=== PATIENT | female | born 2000 | race Caucasian/White ===

== ENCOUNTER → 2025-10-06 08:12 | Outpatient (REF) | payer OTHER, SELFPAY ==
--- OUTSIDE RECORDS SUMMARY | 2024-09-09 09:52 | XMS_ITS | Encounter Summary ---
Author Organization [facility] Address [address] [place] [address] Care Team Providers Care Bunch Maker Hand Name Role Phone McgheeClaudia epps Mushtaq DILL Primary Care Provider [phone]- [phone] Encounter Details Date Type Department Care Team ([facility] st Contact Info) Description 09/09/2024 9:52 AM EST Hospital Encounter [facility] [address] [place] [id number] Zeke Hidalgo MD [address] [place], [place] [id number] Social History Tobacco Use Types Packs/Day Years Used Date Smoking Tobacco: Former Cigarettes 0 Q uit: 04/2022 Smokeless Tobacco: Never Alcohol Use Standard Drinks/Week Comments Yes 0 (1 standard drink = 0.6 oz pur e alcohol) occasionally PHQ-2 Answer Date Recorded PHQ-2 Total Score 0 01/17/2023 [facility] [place] - Occupational Stress Questionnaire Answer Date Recorded Do you feel stress - tense, restless, nervous, or anxious, or unable to sleep at night because your mind is troubled all the time - these days? Rather much 09/25/2024 Physical Activity Answer Date Recorded On average, how many days pe r week do you engage in moderate to strenuous exercise (like a brisk walk)? 5 days 09/25/2024 On average, how many minutes do you exercise per day at this level? 30 min 09/25/2024 Comments No Sex and Gender Information Value Date Recorded Sex Assigned at Female 01/17/2023 8:54 AM EDT Legal Sex Female 3:21 PM EST Gender Identity Agender 09/06/2023 8:41 AM EST Sexual Orientation Not on file documented as of this encounter Plan of Treatment Not on file documented as of this encounter Procedures Procedure Name Priority Date/Time Associated Diagnosis Comments XR CHEST 2 VIEWS STAT 09/09/2024 10:0 3 AM EST Cough, unspecified type documented in this encounter Results * XR Chest 2 views (09/09/2024 10:03 AM EST) Anatomical Region Laterality Modality Chest Computed Radiogr aphy 09/09/2024 10:0 4 AM EST Impressions 09/09/2024 10:04 AM EST Impression: Clear lungs. Narrative 09/09/2024 10:04 AM EST XR CHEST 2 VIEWS: 09/09/2024 9:52 AM CLINICAL HISTORY: Cough Comparisons: Chest x-ray 11/17/2020 Technique: PA and Lateral views. 2 views. Findings: The cardiac silhouette is normal in size. The mediastinal and hilar structures appear unremarkable. The lungs are well expanded without focal infiltrates identified. The visualized osseous structures appear unremarkable. Procedure Note Cornelius Nelson MD - 09/09/2024 XR CHEST 2 VIEWS: 09/09/2024 9:52 AM CLINICAL HISTORY: Cough Comparisons: Chest x-ray 11/17/2020 Technique: PA and Lateral views. 2 views. Findings: The cardiac silhouette is normal in size. The mediastinal and hilarstructures appear unremarkable. The lungs are well expanded without focalinfiltrates identified. The visualized osseous structures appearunremarkable. IMPRESSION: Impression: Clear lungs. us [facility] L[facility] Final Result documented in this encounter Visit Diagnoses Not on filedocumented in this encounter Care Teams Bunch Maker Hand Relationship Specialty Start Date End Date Claudia Mcghee APRN [address] [place] [address] PCP - General Family Medicine 01/17/23 documented as of this encounter
--- OUTSIDE RECORDS SUMMARY | 2025-10-06 08:16 | XMS_ITS | Encounter Summary ---
Author Organization [facility] Address [address] [place] [address] Care Team Providers Care Talent Acquisition Associate Name Role Phone Claudia Mcghee APRN Primary Care Provider [phone]- [phone] Encounter Details Date Type Department Care Team (Late st Contact Info) Description 09/09/2024 Scanned Document [address] [place] [id number] Provider, Generic Social History Tobacco Use Types Packs/Day Years Used Date Smoking Tobacco: Former Cigarettes 0 Q uit: 04/2022 Smokeless Tobacco: Never Alcohol Use Standard Drinks/Week Comments Yes 0 (1 standard drink = 0.6 oz pur e alcohol) occasionally PHQ-2 Answer Date Recorded PHQ-2 Total Score 0 01/17/2023 Comments No Sex and Gender Information Value Date Recorded Sex Assigned at Female 01/17/2023 8:54 AM EDT Legal Sex Female 3:21 PM EST Gender Identity Agender 09/06/2023 8:41 AM EST Sexual Orientation Not on file documented as of this encounter Plan of Treatment Not on file documented as of this encounter Visit Diagnoses Not on filedocumented in this encounter Care Teams Talent Acquisition Associate Relationship Specialty Start Date End Date Claudia cMghee APRN [address] [place] [address] PCP - General Family Medicine 01/17/23 documented as of this encounter
--- OUTSIDE RECORDS SUMMARY | 2025-10-06 08:16 | XMS_ITS | Clinical Summary ---
Author Organization [facility] Address [address] [place] [address] Care Team Providers Care Forming Acid Dumper Name Role Phone McgheeClaudia epps Mushtaq DILL Primary Care Provider [phone]- [phone] Allergies No known active allergies Medications * This document contains information received from the source organization and may not represent a complete record from that organization. methylphenidate (CONCERTA) 18 MG CR tablet Take by mouth as needed. ? Mg dose Active naproxen (NAPROSYN) 500 MG tablet Take 1 tablet (500 mg total) by mouth 2 (two) times a day as needed for mild pain (pain). Take with food 14 tablet 03/01/2021 Active Cholecalciferol 125 MCG (5000 UT) capsule Take 1 tablet by mouth every morning. 02/22/2022 Active acetaminophen (TYLENOL) 500 MG tabletIndicatio ns:Abnormal uterine bleeding (AUB),Pelvic pain Take 1 tablet (500 mg total) by mouth 4 times daily (every 6 hours) as needed for mild pain. 30 tablet 01/17/2023 Active fluconazole (diFLUcan) 150 MG tabletIndicatio ns:Yeast infection Take 1 tablet (150 mg total) by mouth once. 1 tablet 03/13/2023 Active albuterol (PROVENTIL HFA; VENTOLIN HFA) 108 (90 Base) MCG/ACT inhalerIndicati ons:Acute bacterial bronchitis Inhale 2 puffs 4 times daily (every 6 hours) as needed for wheezing. 1 each 09/09/2024 Active busPIRone (BUSPAR) 5 MG tablet Take 1 tablet (5 mg total) by mouth 2 times a day. Active atomoxetine (STRATTERA) 18 MG capsule Take 1 capsule (18 mg total) by mouth. 11/08/2023 Active cyclobenzaprine (FLEXERIL) 10 MG tablet Take 1 tablet (10 mg total) by mouth. 05/11/2024 Active oxyCODONE (ROXICODONE) 5 MG immediate release tablet Take 1 tablet (5 mg total) by mouth. 09/03/2024 Active PANTOprazole (PROTONIX) 40 MG EC tablet Take 1 tablet (40 mg total) by mouth daily on an empty stomach. 02/24/2024 Active Active Problems Problem Noted Date Diagnosed Date S/P hysterectomy 02/05/2023 Assessment & Plan (02/05/2023 11:33 AM EDT): Meeting postoperative goals No vaginal bleeding Return for 6 week postop visit Abnormal uterine bleeding (AUB) 01/04/2023 Overview (01/04/2023): Added automatically from request for surgery [id number] Cervical dysplasia 11/17/2022 Overview (02/06/2023): LSIL pap 10/2022: needs pap 1 year S/p hysterectomy SASCHA 1, no need for anymore pap smears. Assessment & Plan (02/06/2023 4:00 PM EDT): S/p hysterectomy, CIN1 on final pathology, no need for further paps. Back pain 11/13/2022 Asthma 11/13/2022 Anxiety 11/13/2022 Bilateral lumbar radiculopathy 11/13/2022 Attention deficit hyperactivity disorder (ADHD) 12/19/2019 Chronic posttraumatic stress disorder 06/19/2016 Resolved Problems Problem Noted Date Diagnosed Date Resolved Date Pelvic pain 01/04/2023 02/05/2023 Overview (01/04/2023): Added automatically from request for surgery [id number] Family History Medical History Relation Name Comments No Known Problems Brother No Known Problems Father No Known Problems Mother No Known Problems Sister Relation Name Status Comments Brother Alive Father Alive Mother Alive Sister Alive Social History Tobacco Use Types Packs/Day Years Used Date Smoking Tobacco: Former Cigarettes 0 Q uit: 04/2022 Smokeless Tobacco: Never Tobacco Cessation:Counseling Given: Not Answered Alcohol Use Standard Drinks/Week Comments Yes 0 (1 standard drink = 0.6 oz pur e alcohol) occasionally PHQ-2 Answer Date Recorded PHQ-2 Total Score 0 [facility]20[facility] Answer Date Recorded [...] AM EST Sexual Orientation Not on file Last Filed Vital Signs Vital Sign Reading Time Taken Comments Blood Pressure 111/76 09/09/2024 9:40 AM EST Pulse 95 09/09/2024 9:40 AM EST Temperature 36.8 C (98.3 F) 09/09/2024 9:40 AM EST Respiratory Rate 15 09/09/2024 9:40 AM EST Oxygen Saturation 99% 09/09/2024 9:40 AM EST Inhaled Oxygen Concentration - - Weight 94.6 kg (208 lb 9.6 oz) 09/25/2024 8:47 A M EST Height 160 cm (5' 3 ) 09/25/2024 8:47 AM EST Body Mass Index 36.95 09/25/2024 8:47 AM EST Plan of Treatment Health Maintenance Due Date Last Done Comments Hepatitis C Virus Screening 2000 HIV Screening 2013 HPV Vaccines (1 - 3-dose series) 2015 DTaP/Tdap/Td Vaccines (1 - Tdap) 2019 Hepatitis B Vaccines (1 of 3 - 19+ 3-dose series) 2019 Pneumococcal Vaccine: Pediat terry (0-5 Years) and At-Risk Patients (6 to 49 Years) (1 of 2 - PCV) 2019 Influenza Vaccine 05/14/2025 COVID-19 Vaccine (3 - 2024- season) 2025, 05/07/2021 Pap Smear (Ages 21-65) 11/13/2025 11/13/2022 Procedures Procedure Name Priority Date/Time Associated Diagnosis Comments PAP/PRODUCT MARKETING SPECIALIST CYTOLOGY Routine 11/13/2022 11:34 AM EST Screening due from Last 3 Months or Most Recently Relevant to Health Maintenance Insurance [facility] Advance Directives * Full Code (Latest Code Status on File) Date Activated Date Inactivated Comments 01/17/2023 9:39 AM Care Teams Forming Acid Dumper Relationship Specialty Start Date End Date Claudia Mcghee APRN [address] [place] [address] PCP - General Family Medicine 01/17/23
--- OUTSIDE RECORDS SUMMARY | 2025-10-06 08:16 | XMS_ITS | Clinical Summary ---
Author Organization [facility] Address [address] [place] [address] Care Team Providers Care Associate Veterinarian Name Role Phone Dieter Marino MD Unavailable Aguilar Nguyen APRN Primary Care Provider + Allergies No known active allergies Medications albuterol (2.5 MG/3ML) 0.083% nebulizer solution USE 1 UNIT DOSE EVERY 4-6 HOURS NEEDED FOR WHEEZING . 1 3 10/16/2021 Active Acetaminophen (TYLENOL) 500 MG tablet TAKE 1 TABLET EVERY 4 TO 6 HOURS NEEDED. 0 10/16/2021 Active Ibuprofen (ADVIL,MOTRIN) 600 MG tablet TAKE 1 TABLET BY MOUTH 4 TIMES DAILY (EVERY 6 HOURS) NEEDED FOR MILD PAIN. 30 0 01/17/2023 Active oxyCODONE HCl (ROXICODONE) 5 MG immediate release tablet Take 5 mg by mouth. 09/03/2024 Active Naproxen (NAPROSYN) 500 MG tabletIndicatio ns:Fibromyalgia Take one tablet (500 mg total) by mouth 2 (two) times a day if needed for mild pain or moderate pain Take with food. 60 tablet 09/23/2024 01/02/20 26 Active Active Problems Problem Noted Date Diagnosed Date Atypical mole 08/30/2024 Overview (08/30/2024): 08/24/2024 - Two hyperpigmented papules to mid-back with irregular borders and inconsistent color. Patient agrees to Dermatology referral for further evaluation and management - order placed. Encouraged patient to call Dermatology office if not contacted to schedule appointment within 2 weeks. Class 2 severe obesity with serious comorbidity and body mass index (BMI) of 38.0 to 38.9 in adult 08/30/2024 Overview (08/30/2024): 08/24/2024 - In-office weight today is 218 lbs. Patient agrees to Weight Management referral - order placed. Encouraged patient to call Weight Management office if not contacted to schedule appointment within 2 weeks. Postural dizziness with near syncope 08/30/2024 Overview (09/23/2024): 08/24/2024 - Patient seen by Cardiology with negative workup. Completed Physical Therapy with no improvement to symptoms. Patient agrees to complete brain MRI for further evaluation. Will monitor result. 09/23/2024 - Patient has not yet been contacted to schedule MRI, encouraged follow up with [facility]. Contact this office if any issues arise. Nocturnal dyspnea 05/12/2024 Overview (05/12/2024): 05/10/2024 - Patient agrees to Pulmonology referral for PFT and further evaluation - order placed. Encouraged patient to call Pulmonology office if not contacted to schedule appointment within 2 weeks. Flank pain, acute 02/17/2024 Overview (02/17/2024): 02/17/2024 - In-office urinalysis significant for trace blood in urine, otherwise unremarkable. Sample sent for culture. Patient agrees to complete low-dose CT of abdomen and pelvis without contrast to evaluate for potential kidney stone. Will monitor results. Encouraged patient to continue with increased hydration. Raynaud's disease without gangrene 12/20/2023 Claudication 12/20/2023 Overview (01/20/2024): 12/20/2023 - Chronic condition, initial evaluation. Patient agrees to complete ankle-brachial index to assess for peripheral artery disease. 01/20/2024 - Stable, not at goal. Reviewed BUSTER results with patient - results negative for PAD. Patient awaiting scheduling with Cardiology for further evaluation. Palpitations 12/20/2023 Overview (09/23/2024): 12/20/2023 - Chronic condition for years , stable. In-office EKG shows NSR. Patient agrees to complete TSH lab. Recent lab work from 08/2023 unremarkable. Referral to cardiology for further evaluation. 01/20/2024 - Orthostatic vitals assessed. Heart rate change between lying, sitting and standing positions insignificant, suggesting against POTS diagnosis. Significant increase in BP with transition from lying to sitting position, followed by significant decrease in BP with transition from sitting to standing notable. Patient scheduled for Echocardiogram on 01/27/24. New referrals to Cardiology placed - patient advised to keep earliest appointment available. 09/23/2024 - Stable. Cardiology work-up negative. Benign joint hypermobility 12/20/2023 Overview (02/17/2024): 12/20/2023 - Chronic condition, stable, initial assessment. Patient agrees to referral to genetics for testing for hypermobile Jesse-Danlos syndrome - order placed. 02/17/2024 - Genetics requests patient complete Echocardiogram prior to scheduling. Echo complete, results benign. Referral to genetics re-sent, will include Echo results with referral paperwork. Bilateral hand swelling 12/20/2023 Chronic fatigue 12/20/2023 Abdominal bloating 12/20/2023 Overview (01/20/2024): 12/20/2023 - Patient agrees to complete Celiac panel lab work - orders placed. 01/20/2024 - Reviewed Celiac panel results with patient; results negative. Patient agrees to Gastroenterology referral - order placed. Encouraged patient to call Gastroenterology office if not contacted to schedule appointment within 2 weeks. Fibromyalgia 11/21/2023 Overview (09/23/2024): 11/21/2023 Start Cyclobenzaprine 5 mg before bed for pain relief and reduced sleep disturbances. Advised avoiding alcohol when taking Cyclobenzaprine due to sedating effects of medication. Discussed potential medication side effects, including dizziness, dry mouth, constipation. Follow up in 4 weeks, or sooner, if concerns arise. 12/20/2023 - Stable, not at goal. Increase cyclobenzaprine dose to 10 mg nightly for pain relief. New prescription sent. Discussed option to start tricyclic antidepressant for further symptom management - patient declines at this time. Encouraged continued exercise as tolerated. Follow up in 4 weeks for medication review, or sooner, if concerns arise. 01/20/2024 - Stable, not at goal. Continue on Cyclobenzaprine 10 mg nightly as needed and Naproxen 500 mg twice daily as needed for pain relief - refill orders placed. Patient encouraged to take Naproxen with food to reduce risk for stomach ulceration and GI upset. Patient advised to avoid daily consecutive use of Naproxen for more than 2 weeks. Continue exercise as tolerated. Discussed option for referral to physical therapy for joint and endurance strengthening - patient verbalizes interest, states she'd like to wait until after echocardiogram. Follow up in 4 weeks, or sooner, if concerns arise. 02/17/2024 - Stable, controlled. Continue on Cyclobenzaprine 10 mg nightly as needed and Naproxen 500 mg twice daily as needed for pain relief - refill orders placed. Patient encouraged to take Naproxen with food to reduce risk for stomach ulceration and GI upset. Patient advised to avoid daily consecutive use of Naproxen for more than 2 weeks. Continue exercise as tolerated. 05/10/2024 - Stable, controlled. Continue on Cyclobenzaprine 10 mg nightly as needed and Naproxen 500 mg twice daily as needed for pain relief - refill orders placed. Continue exercise and gentle stretching as tolerated. 09/23/2024 - Improving since breast reduction surgery. Continue on Cyclobenzaprine 10 mg nightly as needed and Naproxen 500 mg twice daily as needed for pain relief. Gastroesophageal reflux disease 11/21/2023 Overview (02/17/2024): 11/21/2023 Chronic condition, stable, well controlled. Continue on pantoprazole 20 mg once daily. Refill order placed. 02/17/2024 - Encouraged patient to start taking Pantoprazole 40 mg once daily on first thing before any food intake. Patient to follow up with office if painful hiccups are unrelieved with daily Pantoprazole use. H/O: hysterectomy 05/20/2023 Frequent loose stools 05/20/2023 Bright red blood per rectum 05/20/2023 Overview (05/12/2024): 11/21/2023 Patient last seen by GI in June, - was advised that blood was related to constipation (hemorrhoid vs anal fissure?). Advised patient follow up with GI, request a scope exam given family history of colon cancer. Encouraged patient to request cancer specific labs through GI. 05/10/2024 - Endoscopy and colonoscopy results benign. Patient to follow up with GI as needed. Intertrigo 10/16/2022 Vitamin D deficiency 02/22/2022 Thrombocytosis 02/22/2022 Painful lumpy left breast 02/21/2022 Bilateral lumbar radiculopathy 11/15/2021 Vertebrogenic low back pain 11/15/2021 PTSD (post-traumatic stress disorder) 10/16/2021 H/O self mutilation 10/16/2021 Overview (11/17/2023): Impression - [id number]: Right lower arm scarring Hip pain, chronic 10/16/2021 History of tonsillectomy 10/16/2021 Overview (11/17/2023): Impression - [id number]: 2020 Anxiety 10/16/2021 Overview (11/17/2023): Impression - [id number]: Patient requesting a therapist. Manages with relaxation techniques. Depression 10/16/2021 ADHD (attention deficit hyperactivity disorder) 10/16/2021 Asthma 10/16/2021 Overview (11/17/2023): Impression - [id number]: Stable and no recent exacerbations. Use inhalers PRN. Impression - [id number]: Stable and no recent exacerbations. Back pain, chronic 10/16/2021 Overview (05/12/2024): 11/21/2023 - Patient has completed several months of physical therapy, and has tried acupuncture and chiropractor, with no relief of chronic back pain. Office to provide letter of medical necessity for patient's breast reduction surgery. 05/10/2024 - Breast surgery delayed due to need for Cardiology clearance. Patient awaiting tilt table test through Cardiology. Resolved Problems Problem Noted Date Diagnosed Date Resolved Date Acute bronchitis 11/21/2022 05/12/2024 Overview (11/17/2023): Impression - [id number]: Patient will take Claritin 10 milligram daily as needed for allergy/postnasal drip. Ordered a chest x-ray because patient is concerned about history of pneumonia. Clinically patient is stable. No sign or symptoms of pneumonia. No fever, no productive cough. Cough 11/21/2022 11/21/2023 Sore throat 10/09/2022 11/21/2023 URI with cough and congestion 10/09/2022 11/21/2023 Discharge from left nipple 02/21/2022 0 05/12/2024 History of termination of 10/16/2021 04/01/2024 Overview (11/17/2023): Impression - 16Oct2021: 10/12/21--9 weeks gestation.; Follow-up with [employer] [employer] [facility] 10/18/2021 Immunizations Immunization Administration Dates Next Due COVID-19, mRNA (Moderna Pre Fall 2022) Monovalent, 100 mcg/0.5 ml or 50 mcg/0.25 ml dose 06/03/2021,05/07/2021 DTaP-HEP B-IPV (Pediarix) 11/10/2004 HPV4 (Gardasil 4) 04/05/2015,07/25/2012,05/14/20 12 Hep A, Pediatric, Unspecified Formulation 2004,04/18/2004 Hep B (pedi) 03/25/2002,04/07/2001 Hib - 03/25/2002,08/12/2001,04/07/2001 MMR 11/10/2004,03/22/2003 Meningococcal ACWY (Menactra) 05/14/2012 Meningococcal ACWY (Menveo) 06/18/2017 OPV, Trivalent (Admin Before 01/13/2016) 3,03/25/2002,04/07/2001 Tdap 05/14/2012 Varicella 05/14/2012,03/22/2003 Family History Medical History Relation Name Comments CAD/PVD - Early Maternal grandfather Diabetes Paternal grandmother Relation Name Status Comments Maternal grandfather Paternal grandmother Social History Tobacco Use Types Packs/Day Years Used Date Smoking Tobacco: Former Cigarettes 0.2 4 0 04/13/2018 - 04/13/2022 Passive Smoke Exposure: Never Smokeless Tobacco: Never Tobacco Cessation:Counseling Given: Not Answered Comments:Smoking Status:No current tobacco use Alcohol Use Standard Drinks/Week Comments Yes 0 (1 standard drink = 0.6 oz pur e alcohol) socially, monthly use Comments No Sex and Gender Information Value Date Recorded Sex Assigned at Female 07/17/2023 10:28 PM EDT Legal Sex Female 10:28 PM EDT Gender Identity Genderqueer or Non-binary 2023 2:09 PM EST Sexual Orientation Bisexual 05/11/2024 9: 50 AM EDT Last Filed Vital Signs Vital Sign Reading Time Taken Comments Blood Pressure 118/72 09/23/2024 1:14 PM EST Pulse 100 09/23/2024 1:14 PM EST Temperature 36.5 C (97.7 F) 09/23/2024 1:14 PM EST Respiratory Rate 16 09/23/2024 1:14 PM EST Oxygen Saturation 99% 09/23/2024 1:14 PM EST Inhaled Oxygen Concentration - - Weight 94.3 kg (208 lb) 09/23/2024 1:14 PM EST Height 160 cm (5' 3 ) 09/23/2024 1:14 PM EST Body Mass Index 36.85 09/23/2024 1:14 PM EST Plan of Treatment Health Maintenance Due Date Last Done Comments Pap Smear 2016 Pneumococcal (1 of 2 - PCV) 2019 DTaP/Tdap/Td (3 - Td or Tdap) 05/14/2022 05/14/2012, 11/10/2004 COVID-19 Vaccine (3 - 2024-2 6 season) 2025 06/03/2021, 05/07/2021 Influenza (#1) 2025 Chlamydia 06/22/2025 06/22/2024, 07/15, 08/27/2018 Colonoscopy 04/06/2029 04/06/2024, 04/06/2024 Zoster (Shingrix) (1 of 2) 2050 05/14/2012, Hib Completed 03/25/2002, 07/16, 04/07/2001 Hep A Completed 11/10/2004, 04/18/2004 Hep B Completed 11/10/2004, 03/14, 04/07/2001 HPV Vaccine Completed 04/05/2015, 07/14, 05/14/2012 Meningococcal ACWY Completed 06/18/2017, 05/14/2012 Physical Discontinued 10/16/2021 Hepatitis C Screening Completed 02/21/2022 LDL Cholesterol Discontinued 09/05/2023, 08/0 04/2023, 02/21/2022 EKG Discontinued 08/28/2024, 07/0 10/2023, 12/20/2023, Additional history exists Procedures Procedure Name Priority Date/Time Associated Diagnosis Comments INFECTIOUS AGENT, NUCLEIC ACID (DNA/RNA); CHLAMYDIA TRACHOMATIS, AMPLIFIED PROBE Routine 06/22/2024 1:47 PM EDT Vaginal itching White vaginal discharge COLONOSCOPY 04/06/2024 EKG 12/20/2023 LIPID PANEL, PLASMA Routine 05/20/2023 9 :41 AM EDT HEPATITIS C ANTIBODY W/ REFLEX TO RNA, QN, RT PCR Routine 02/21/2022 12:04 PM EDT from Last 3 Months or Most Recently Relevant to Health Maintenance Results * (ABNORMAL) BACTERIAL VAGINOSIS (BV), CT/NG, TMA (06/22/2024 1:47 PM EDT) Bacterial Vaginosis (BV), TMA POSITIVE(A) NEGATIVE [facility] Chlamydia trachomatis rRNA NOT DETECTED NOT DETECTED [facility] Neisseria Gonorrhoeae rRNA NOT DETECTED NOT DETECTED [facility] 06/22/2024 1:47 PM EDT 06/22/2024 1:47 PM EDT Narrative [facility] - 06/23/2024 8:12 AM EDT Track Order?->No Release result to patient->Immediate Testing Performed at: [facility], [address] [place] [address], , Patient Registration Manager: Tammy Esposito MD CL#[id number] Aguilar Fisherkimberly [facility] Final Re sult Performing Organization Address [facility]/ZIP Co de Phone Number [facility] [address] [place] [address], * COLONOSCOPY (04/06/2024) Aguilar Fisherkimberly [facility] Final Re sult * EKG (12/20/2023) Narrative 12/20/2023 Ordered by an unspecified provider. Unknown Provider CARDIOVASCULAR-NO INBASKET RTG Final Result * (ABNORMAL) LIPID PANEL, PLASMA (05/20/2023 9:41 AM EDT) Cholesterol 168 0 - 199 mg/dL [facility] Triglyceride 88 0 - 150 mg/dL [facility] VLDL Cholesterol 18 5 - 40 mg/dL [facility] HDL Cholesterol 43(L) 50 - 80 mg/dL [facility] LDL Cholesterol 108(H) 0 - 100 mg/dL [facility] Cholesterol Non-HDL 125 0 - 130 mg/dl [facility] CHOL/HDL Ratio 3.9 [facility] 05/20/2023 9:41 AM EDT Narrative [facility] - 05/20/2023 6:06 PM EDT FASTING: NO Fasting reference interval. [facility] Lip[facility] testing results require a 12 hour fasting specimen. Use caution when interpreting non-fasting cholesterol and triglyceride results. Testing Performed at: [facility], [address] [place] [id number], , Patient Registration Manager: Tammy Esposito MD CL#[id number] Claudia Mcghee [facility] Final R esult Performing Organization Address [facility]/ZIP Co de Phone Number [facility] * HEPATITIS C ANTIBODY W/ REFLEX TO RNA, QN, RT PCR (02/21/2022 12:04 PM EDT) Hepatitis C virus Ab NON-REACT GEENA NON-REACT GEENA [facility] Hepatitis C virus Ab 0.05 <1.00 [facility] Comment:Antibodies to HCV we re not detected. NOTE: This does not entirely exclude the possibility of exposure to HCV since antibody production may lag infection. If there is a high suspicion of HCV infection HCV RNA testing may be of diagnostic value. 02/21/2022 12:0 4 PM EDT Narrative [facility] - 02/21/2022 4:05 PM EDT Testing Performed at: [facility], [address] [place] [address], , Patient Registration Manager: Tammy Esposito MD CL#[id number] 6:02PM by Claudia Mcghee: Spoke with patient. CBC to be repeated in 1 month Claudia Mcghee [employer] [facility] Final R esult [facility] from Last 3 Months or Most Recently Relevant to Health Maintenance Insurance MEDICAID Care Teams Associate Veterinarian Relationship Specialty Start Date End Date Dieter Marino MD [address] [id number] PCP - Backup PCP Family Medicine 11/14/23 Aguilar Nguyen APRN [address] [place] [phone] PCP - General Family Medicine 12/20/23
--- OUTSIDE RECORDS SUMMARY | 2025-10-06 08:16 | XMS_ITS | Encounter Summary ---
Author Organization [facility] Address [address] [place] [address] Care Team Providers Care Lpn Medical Assistant Name Role Phone Claudia Mcghee APRN Primary Care Provider [phone]- [phone] Encounter Details Date Type Department Care Team (Late st Contact Info) Description 09/09/2024 [address] [place] [phone] Provider, Generic Social History Tobacco Use Types [...] on filedocumented in this encounter Care Teams Lpn Medical Assistant Relationship Specialty Start Date End Date Claudia Mcghee APRN [address] [facility] [place] [address] PCP - General Family Medicine 01/17/23 documented as of this encounter
--- OUTSIDE RECORDS SUMMARY | 2025-10-06 08:16 | XMS_ITS | Encounter Summary ---
Author Organization [facility] Address [address] [place] [address] Care Team Providers Care Field Administrative Assistant Name Role Phone Dieter Marino MD Unavailable Aguilar Nguyen APRN Primary Care Provider + Reason for Visit * Reason Comments Med Change Request Encounter Details Date Type Department Care Team (Late st Contact Info) Description 12/20/2023 Refill [facility] [address] [place] [address] Aguilar Nguyen APRN [address] [place] [address] Med Change Request Social History Tobacco Use Types Packs/Day Years Used Date Smoking Tobacco: Never Passive Smoke Exposure: Never Smokeless Tobacco: Never Comments:Smoking Status:No c urrent tobacco use Alcohol Use Standard Drinks/Week Comments Never 0 (1 standard drink = 0.6 oz pur e alcohol) Comments Unknown Sex and Gender Information Value Date Recorded Sex Assigned at Female 07/17/2023 10:28 PM EDT Legal Sex Female 10:28 PM EDT Gender Identity Genderqueer or Non-binary 2023 2:09 PM EST Sexual Orientation Bisexual 05/11/2024 9: 50 AM EDT documented as of this encounter Plan of Treatment Not on file documented as of this encounter Visit Diagnoses Diagnosis Fibromyalgia Mylagia and myositis, unspecified documented in this encounter Care Teams Field Administrative Assistant Relationship Specialty Start Date End Date Dieter Marino MD [address] [place] [address] PCP - Backup PCP Family Medicine 11/14/23 Aguilar Nguyen APRN [address] [place] [phone] PCP - General Family Medicine 12/20/23 documented as of this encounter
--- OUTSIDE RECORDS SUMMARY | 2025-10-06 08:16 | XMS_ITS ---
Author Name [facility] Organization Unknown Results Test Name/Text Value Interpretation Date Range Source Citation Ref Lab Test The technical components of this [place] [address] CLIA # [id number] Normal 09/04/2024 [facility] BACTERIAL VAGINOSIS (BV), TMA POSITIVE Abnormal 06/22/2024 - [facility] CHLAMYDIA TRACHOMATIS RNA TMA NOT DETECTED Normal 06/22/2024 - [facility] NEISSERIA GONORRHOEAE RNA TMA NOT DETECTED Normal 06/22/2024 - [facility] Bacteria Ur Cult SEE NOTE Normal 02/19/2024 QU EST tTG IgG Ser-aCnc <1.0 Normal 12/24/2023 QU EST Gliadin IgA Ser IA-aCnc <1.0 Normal 12/24/2023 [facility] IgA SerPl-mCnc 244.0 mg/dL Normal 12/24/2023 47 - 310 QU EST tTG IgA Ser-aCnc <1.0 Normal 12/24/2023 QU EST Gliadin IgG Ser IA-aCnc <1.0 Normal 12/24/2023 [facility] History of Medication Use Medication Directions Dispensed Refills Start Date End Date Status azithromycin (ZITHROMAX) 250 MG tablet Take 2 tabs PO on day one and one tabs on days 2-5 #6 4 09/15/20 24 active albuterol (PROVENTIL HFA; VENTOLIN HFA) 108 (90 Base) MCG/ACT inhaler Inhale 2 puffs 4 times daily (every 6 hours) as needed for wheezing. 4 active oxyCODONE (ROXICODONE) 5 mg immediate release tablet Take 1 tablet (5 mg total) by mouth every 6 (six) hours if needed for severe pain. Max Daily Amount: 20 mg 4 09/29/20 active acetaminophen (TYLENOL) tablet 650 mg 650 mg, oral, Once, On Sat09/01/24 at 1015, For 1 dose, Recovery (only), Scheduled medication for mild pain 4 09/01/20 completed ondansetron (PF) (ZOFRAN) 4 mg/2 mL injection - ADS Override Pull Starting on Sat09/01/24 at 1400, For 1 dose, Created by cabinet override 09/01/20 completed lactated Ringer's infusion 50 mL/hr, intravenous, Continuous, Starting on Sat09/01/24 at 0700, Preprocedure 4 active sodium chloride 0.9 % flush 10 mL [Order 1 Start] Name: Insert peripheral IV Signed Summary: STAT, Once, On Sat09/01/24 at 0637, For 1 occurrence, Preprocedure [Order 1 End] [Order 2 Start] Name: Maintain IV access Signed Summary: Until discontinued, Starting on Sat09/01/24 at 0637, Until Specified, Preprocedure [Order 2 End] [Ord 4 active hyoscyamine (LEVBID) 0.375 MG 12 hr tablet Take 1 tablet (375 mcg total) by mouth every 12 (twelve) hours as needed for cramping. 4 05/23/20 25 active hyoscyamine (LEVBID) 0.375 mg 12 hr tablet Take 1 tablet (375 mcg total) by mouth every 12 (twelve) hours as needed for cramping. 4 08/28/20 24 aborted cyclobenzaprine (FLEXERIL) 10 mg tablet Take 10 mg by mouth in the morning. 4 active cyclobenzaprine (FLEXERIL) 10 MG tablet Take 1 tablet (10 mg total) by mouth. 4 active sodium chloride 0.9% (NS) infusion 25 mL/hr, Intravenous, Continuous, Starting on Sat04/06/24 at 0945, Pre-ProcedureSTART AT KVO (25 ML/HR) PRE-PROCEDURE; DURING PROCEDURE INCREASE RATE TO 300 ML/HR UNTIL 500 ML INFUSED. 4 active pantoprazole (PROTONIX) 40 mg EC tablet TAKE 1 TABLET BY MOUTH EVERY MORNING ON AN EMPTY STOMACH. 4 active PANTOprazole (PROTONIX) 40 MG EC tablet Take 1 tablet (40 mg total) by mouth daily on an empty stomach. 4 active pantoprazole (PROTONIX) 40 MG tablet TAKE 1 TABLET BY MOUTH EVERY MORNING ON AN EMPTY STOMACH. 4 active pantoprazole (PROTONIX) 40 MG tablet TAKE 1 TABLET BY MOUTH EVERY MORNING ON AN EMPTY STOMACH. 4 active cyclobenzaprine (FLEXERIL) 5 mg tablet Take 2 tablets (10 mg total) by mouth every night at bedtime. 4 active cyclobenzaprine (FLEXERIL) 5 MG tablet Take 1 tablet (5 mg total) by mouth. 4 active cyclobenzaprine (FLEXERIL) 5 MG tablet Take 2 tablets (10 mg total) by mouth every night at bedtime. 4 active cyclobenzaprine (FLEXERIL) 5 MG tablet Take 2 tablets (10 mg total) by mouth every night at bedtime. 4 active cyclobenzaprine (FLEXERIL) 5 MG tablet Take 1 tablet (5 mg total) by mouth. 4 active atomoxetine (STRATTERA) 18 mg capsule Take 1 capsule (18 mg total) by mouth daily. 4 08/28/20 24 aborted atomoxetine (STRATTERA) 18 MG capsule Take 1 capsule (18 mg total) by mouth daily. 4 active atomoxetine (STRATTERA) 18 MG capsule Take 1 capsule (18 mg total) by mouth daily. 4 active atomoxetine (STRATTERA) 18 MG capsule Take 1 capsule (18 mg total) by mouth. 4 active tamsulosin (FLOMAX) capsule Take 1 capsule (0.4 mg total) by mouth in the morning. 3 active pantoprazole (Protonix) 40 mg EC tablet Take 1 tablet (40 mg total) by mouth in the morning. 3 06/24/20 24 active busPIRone (BUSPAR) 5 mg tablet Take 5 mg by mouth in the morning. 3 active sucralfate (CARAFATE) 1 GM/10ML suspension Take 10 mL (1 g total) by mouth. 3 09/25/20 active fluconazole (diFLUcan) 150 MG tablet Take 1 tablet (150 mg total) by mouth once. active sucralfate (CARAFATE) 100 mg/mL suspension Take 1 g by mouth. active polyethylene glycol (miraLAx) 17 g packet Take 1 packet (17 g total) by mouth daily. 3 09/25/20 24 active simethicone (MYLICON) 80 MG chewable tablet Chew 1 tablet (80 mg total) 4 times daily (every 6 hours) as needed for flatulence or gastrointestinal distress. 3 09/25/20 24 active ibuprofen (MOTRIN) 600 MG tablet Take 1 tablet (600 mg total) by mouth 4 times daily (every 6 hours) as needed for mild pain. 3 02/18/20 23 aborted oxyCODONE (ROXICODONE) 5 MG immediate release tablet Take 1 tablet (5 mg total) by mouth. 3 02/07/20 23 active simethicone (MYLICON) 80 mg chewable tablet Take 80 mg by mouth every 6 hours as needed. 3 active metroNIDAZOLE (FLAGYL) 500 MG tablet Take 1 tablet (500 mg total) by mouth 2 (two) times a day. Take with meals or food to reduce stomach upset. 3 02/07/20 23 active ibuprofen (MOTRIN) tablet 800 mg 3 01/03/20 23 completed Claritin 10 MG Oral Capsule Claritin 10 MG Oral Capsule1 tab po daily prn for allergy Quantity: 30 Refills: 0Islam M.Jerome [facility] Start : [id number] 3 completed Nystatin [id number] UNIT/GM External Powder Nystatin [id number] UNIT/GM External Powder Quantity: 60 Refills: 0 Start : [id number] 3 completed famotidine (PEPCID) 20 MG tablet Take 1 tablet (20 mg total) by mouth as needed. 3 09/25/20 24 active Famotidine 20 MG Oral Tablet Famotidine 20 MG Oral TabletTAKE 1 TABLET (20 MG TOTAL) BY MOUTH IN THE MORNING AND BEFORE BEDTIME Quantity: 30 Refills: 0 Start : 3 completed Nystatin Powder Nystatin Powderapply to affected area 2x daily. Quantity: 1 Refills: 3BClaudia mendoza APRN Start : [id number] 3 completed Azithromycin 250 MG Oral Tablet Azithromycin 250 MG Oral TabletTAKE 2 TABLETS ON DAY 1 THEN TAKE 1 TABLET A DAY FOR 4 DAYS. Quantity: 1 Refills: 0Bennettkatrina HORENRChris Claudia Start : [id number] Tablet Box 2 completed methocarbamol (ROBAXIN) 500 MG tablet Take 1 tablet (500 mg total) by mouth as needed. 2 09/25/20 24 active Cholecalciferol 125 MCG (5000 UT) capsule Take 1 tablet by mouth every morning. 2 active CVS D3 50 MCG (2000 UT) Oral Capsule CVS D3 50 MCG (2000 UT) Oral CapsuleTAKE 1 CAPSULE BY MOUTH THREE TIMES WEEKLY Quantity: 30 Refills: 0Taz HORNERNClaudia Start : 2 completed Methocarbamol 500 MG Oral Tablet Methocarbamol 500 MG Oral Tablet Refills: 0 Start : 2 completed Naproxen 250 MG Oral Tablet Naproxen 250 MG Oral TabletTAKE 1 TABLET BY MOUTH 2 TIMES A DAY WITH MEALS Refills: 0 Start : 2 completed Vitamin D3 125 MCG (5000 UT) Oral Capsule Vitamin D3 125 MCG (5000 UT) Oral CapsuleTAKE 1 CAPSULE BY MOUTH EVERY DAY Quantity: 1 Refills: Socorro HORNERNClaudia Start : [id number] Capsule Bottle 2 completed acetaminophen (TYLENOL) 500 MG tablet Take 1 tablet (500 mg total) by mouth 4 times daily (every 6 hours) as needed for mild pain. 2 02/18/20 23 active Albuterol Sulfate (2.5 MG/3ML) 0.083% Inhalation Nebulization Solution Albuterol Sulfate (2.5 MG/3ML) 0.083% Inhalation Nebulization SolutionUSE 1 UNIT DOSE EVERY 4-6 HOURS NEEDED FOR WHEEZING . Quantity: 1 Refills: Claudia Kingston APRN Start : 2 completed Concerta 18 MG Oral Tablet Extended Release Concerta 18 MG Oral Tablet Extended ReleaseTake 2 daily PRN. Refills: 0Claudia Mcghee APRN Start : 2 completed Ibuprofen 800 MG Oral Tablet Ibuprofen 800 MG Oral TabletPRN Refills: Claudia Quintanilla APRN Start : 2 completed Tylenol Extra Strength 500 MG Oral Tablet Tylenol Extra Strength 500 MG Oral TabletTAKE 1 TABLET EVERY 4 TO 6 HOURS NEEDED. Refills: Claudia Quintanilla APRN Start : 2 completed naproxen (NAPROSYN) 500 MG tablet Take 1 tablet (500 mg total) by mouth 2 (two) times a day as needed for mild pain (pain). Take with food 04/02/20 23 active albuterol (PROVENTIL HFA; VENTOLIN HFA) 108 (90 Base) MCG/ACT inhaler Inhale 1-2 puffs every 4 (four) hours as needed for wheezing. 1 06/11/20 23 active ALBUTEROL INHL Inhale into the lungs. 08/28/20 24 active Acetaminophen (TYLENOL PO) Take by mouth. active acetaminophen 160 mg tablet,disintegratin g Take by mouth. active ALBUTEROL IN Inhale into the lungs. active busPIRone (BUSPAR) 5 MG tablet Take 1 tablet (5 mg total) by mouth 2 times a day. active busPIRone HCl (BUSPAR PO) Take 5 mg by mouth 2 (two) times a day. active busPIRone HCl (BUSPAR PO) Take 5 mg by mouth 2 (two) times a day. active methylphenidate (CONCERTA) 18 MG CR tablet Take by mouth as needed. ? Mg dose active naproxen (NAPROSYN) 250 mg tablet Take 1 tablet (250 mg total) by mouth 2 (two) times a day as needed. active naproxen (NAPROSYN) 250 MG tablet Take 1 tablet (250 mg total) by mouth 2 (two) times a day as needed. active naproxen (NAPROSYN) 250 MG tablet Take 1 tablet (250 mg total) by mouth 2 (two) times a day with meals. active Allergies Allergen Reaction Severity Comment Documented Date Source Statu s GABAPENTIN OTHER Increase in pain 08/31/2024 [facility] active Problems Problem Status Onset Date Problem Type Date of Resolution Source Chronic posttraumatic stress disorder active 2016-06-19 ProblemAct [facility] Bilateral lumbar radiculopathy active 2022-11-13 ProblemAct [facility] Anxiety active 2022-11-13 ProblemAct [facility] Abnormal uterine bleeding (AUB) active 2023-01-04 ProblemAct [facility] Back pain active 2022-11-13 ProblemAct [facility] Attention deficit hyperactivity disorder (ADHD) active 2019-12-19 ProblemAct [facility] S/P hysterectomy active 2023-02-05 ProblemAct [facility] Cervical dysplasia active 2022-11-17 ProblemAct [facility] Asthma active 2022-11-13 ProblemAct [facility] Class 2 obesity due to excess calories without serious comorbidity with body mass index (BMI) of 35.0 to 35.9 in adult active EncounterDiagnosisAct CTTHNEMG H/O self mutilation active 2021-10-16 ProblemAct [facility] History of tonsillectomy active 2021-10-16 ProblemAct [facility] GERD (gastroesophageal reflux disease) active 2023-12-05 ProblemAct [facility] JOHNS (dyspnea on exertion) active EncounterDiagnosisAct CTTHNE MG Heart rate fast active EncounterDiagnosisAct CT[facility]NEM[facility] Other fatigue active EncounterDiagnosisAct [facility]NEM[facility] Abdominal pain active 2023-12-05 ProblemAct CTT HNEMG Abdominal bloating active 2023-12-05 ProblemAct [facility] Dizziness active EncounterDiagnosisAct [facility] Palpitations active EncounterDiagnosisAct [facility] Pedal edema active EncounterDiagnosisAct [facility] Eating disorder, unspecified active 2019-12-19 ProblemAct [facility] Anxiety active 2021-10-16 ProblemAct [facility] Epigastric pain active 2023-12-[address] [facility] Irregular bowel habits active 2023-12-05 ProblemAct [facility] Macromastia active 2024-02-14 ProblemAct [facility] EL[facility] Vitamin D deficiency active 2022-02-22 ProblemAct [facility] Palpitations active 2023-12-20 ProblemAct [facility] Depression active 2021-10-16 ProblemAct [facility] Frequent loose stools active 2023-05-20 ProblemAct [facility] S/P bilateral breast reduction active EncounterDiagnosisAct [facility] EL[facility] Gastroesophageal reflux disease active 2023-11-21 ProblemAct [facility] Vertebrogenic low back pain active 2021-10-16 ProblemAct [facility] Discharge from left nipple active 2022-02-21 ProblemAct [facility] Bilateral lumbar radiculopathy active 2021-11-15 ProblemAct [facility] Bright red blood per rectum active 2023-05-20 ProblemAct [facility] Claudication active 2023-12-20 ProblemAct [facility] Fracture of phalanx of finger active 2012-07-28 ProblemAct [facility] Eczema active 2017-06-18 ProblemAct [facility] Raynaud's disease without gangrene active 2023-12-20 ProblemAct [facility] Change in bowel habits active 2023-12-05 ProblemAct [facility] Bilateral hand swelling active 2023-12-20 ProblemAct [facility] Intertrigo active 2022-10-16 ProblemAct [facility] Thrombocytosis active 2022-02-22 ProblemAct [facility] Benign joint hypermobility active 2023-12-20 ProblemAct [facility] Major depressive disorder, recurrent episode active 2015-01-05 ProblemAct [facility] Asthma active 2021-10-16 ProblemAct [facility] Recurrent severe major depressive disorder with anxiety active 2016-11-15 ProblemAct [facility] Painful lumpy left breast active 2022-02-21 ProblemAct [facility] Tendinitis active 2011-10-02 ProblemAct [facility] Pleuritic chest pain active 2017-08-20 ProblemAct [facility] Chronic fatigue active 2023-12-[address] [facility] Hypermobility arthralgia active EncounterDiagnosisAct [facility]S Immunizations Vaccine Date Source Lot Number Status Moderna SARS-CoV-2 COVID-19, mRNA, LNP-S, preservative free 06/03/2021 CTBART [id number] completed Moderna SARS-CoV-2 COVID-19, mRNA, LNP-S, preservative free 05/07/2021 [facility] [id number] completed Encounters Encounter Type Encounter Reason Primary Diagnosis Location Date Ambulatory Follow-up Follow-up [facility] 11/05/2024 Ambulatory [facility] 10/21/2024 Ambulatory Other specified postprocedural states Other specified postprocedural states [facility] 10/15/2024 Ambulatory Follow-up Hypertrophy of breast [facility] 09/29/2024 Ambulatory Obesity, class 2 Obesity, class 2 [facility]25[facility]24 Ambulatory [facility] 09/23/2024 Ambulatory [facility] 09[facility]23/2024 Ambulatory [facility] 09/18/2024 Ambulatory [facility] 09/09/2024 Ambulatory Cough Cough [facility] 09/09/2024 Ambulatory Post-op Post-op [facility] 09/08/2024 Ambulatory Hypertrophy of breast Hypertrophy of renetta st [facility] 09/01/2024 Ambulatory [facility] 08/31/2024 Ambulatory Encounter for preprocedural cardiovascular examination Encounter for preprocedural cardiovascular examination [facility] 08/28/2024 Ambulatory [facility] 08/24/2024 Ambulatory N/A N[place]A [facility] [place]05[place]2024 Ambulatory [facility] 06/22/2024 Ambulatory Pain in unspecified joint Pain in unspecified joint [facility] 05/29/2024 Ambulatory Pain in unspecified joint Pain in unspecified joint [facility] 05/20/2024 [facility]ulatory [facility] 05/11/2024 Ambulatory Change in bowel habit Change in bowel hab it [facility] 04[place]06/2024 Ambulatory [facility] 04/01/2024 Ambulatory [facility] 04/01/2024 Ambulatory [facility] 03/30/2024 Ambulatory [facility] 02/28/2024 Ambulatory [facility] 02/26/2024 Ambulatory Calculus of ureter Calculus of ureter [facility] 11/25/2023 Ambulatory Calculus of ureter Calculus of ureter [facility] 11/20/2023 Emergency Unspecified renal colic Unspecified renal colic [facility] 09/06/2023 Emergency Calculus of kidney Calculus of kidney [facility] 09/04/2023 Emergency Unspecified renal colic Unspecified renal colic [facility] 08/17/2023 Ambulatory Epigastric pain Epigastric pain [facility] 07/18/2023 Emergency Dyskinesia of esophagus Dyskinesia of esophagus [facility] 06/24/2023 Emergency Epigastric pain Epigastric pain [facility] Ambulatory Candidiasis, unspecified [facility] 03/13/2023 Ambulatory 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 [facility] 02/06/2023 Emergency Gastritis, unspecified, without bleeding [facility] 01/25/2023 Ambulatory Pelvic and perin eal pain [facility] 01/17/2023 Ambulatory Abnormal uterine and vaginal bleeding, unspecified [facility] 01/02/2023 Ambulatory Pelvic and perin eal pain [facility] 12/12/2022 Ambulatory Pelvic and perineal pain Pelvic and perineal pain [facility] 11/13/2022 Emergency Epigastric pain [facility] 023 Ambulatory [facility] 10/02/2021 Care Team Organization Name Specialty Phone Email Start Date End Da [facility]/2024 [facility] 2023 [facility] Dieter Marino Primary Care 0 07/06/2024 [facility] 06/16/2024 [facility] NOT PROVIDER Primary Care 02[facility]18/2024 [facility] MORGAN GREY Primary Care 1 06/18/2024 [facility] CLAUDIA MCGHEE Primary Care 07/18/2023 07/18/20 [facility] Hazel Samano APRN Primary Care 04/02/2023 06/01/2024 [facility] Primary Care 02/18/2023 06/01/2024 [facility] Claudia Mcghee Primary Care 02/06/2023 025 [facility] Claudia Mcghee Primary Care 023 [facility] CLAUDIA MCGHEE Primary Care 01/17/2023 023 [facility] Savana Gonzalez Primary Care 11/13/20222024 [facility] 023 10/19/2022 [facility] 10/19/2022 [facility] 09/14/2022 [facility] 01/01/2022 08/20/2022 [facility] Taz Taylor Primary Care 10/02/2021 06/18/2024 [facility] SAVANA GONZALEZ Primary Care 03/01/20212020
--- OUTSIDE RECORDS SUMMARY | 2025-10-06 08:16 | XMS_ITS | Clinical Summary ---
Author Organization [facility] Address [address] [place] [id number] Care Team Providers Care Consumer Insights Intern Name Role Phone Jenni Lacey Unavailable Allergies No known active allergies Medications sucralfate (CARAFATE) 100 mg/mL suspension Take 1 g by mouth. 3 Active simethicone (MYLICON) 80 mg chewable tablet Take 80 mg by mouth every 6 hours as needed. 3 Active busPIRone (BUSPAR) 5 mg tablet Take 5 mg by mouth in the morning. 3 Active tamsulosin (FLOMAX) capsule Take 1 capsule (0.4 mg total) by mouth in the morning. 3 capsule 3 Active Additional Information Patient not taking.Reported on 11/20/2023 acetaminophen 160 mg tablet,disinteg rating Take by mouth. Activ e cyclobenzaprine (FLEXERIL) 10 mg tablet Take 10 mg by mouth in the morning. 4 Active Active Problems No known active problems Family History Medical History Relation Comments Rheum arthritis Maternal Grandmother Arthritis Mother Other Mother Throws back out easily / frequently Relation Status Comments Father Alive Half-Brother 1 Alive Half-Brother 2 Alive Half-Brother 3 Alive Half-Sister 1 Alive Half-Sister 2 Alive Maternal Grandmother Mother Alive Social History Tobacco Use Types Packs/Day Years Used Date Smoking Tobacco: Former Cigarettes Smokeless Tobacco: Never Tobacco Cessation:Counseling Given: Not Answered Alcohol Use Standard Drinks/Week Comments Yes 0 (1 standard drink = 0.6 oz pur e alcohol) rarely Comments No Sex and Gender Information Value Date Recorded Sex Assigned at Not on file Legal Sex Female 9:13 AM EST Gender Identity Not on file Sexual Orientation Not on file Last Filed Vital Signs Vital Sign Reading Time Taken Comments Blood Pressure 118/80 11/20/2023 3:34 PM EST Pulse 83 11/20/2023 3:34 PM EST Temperature 36.8 C (98.2 F) 09/06/2023 5:16 AM EST Respiratory Rate 18 09/06/2023 5:59 AM EST Oxygen Saturation 100% 11/20/2023 3:34 PM EST Inhaled Oxygen Concentration - - Weight 95.7 kg (211 lb) 05/20/2024 10:02 AM EDT Height 164.5 cm (5' 4.75 ) 05/20/2024 10:02 AM E DT Body Mass Index 35.38 05/20/2024 10:02 AM EDT Plan of Treatment Health Maintenance Due Date Last Done Comments HIV Screening 2000 Chlamydia Screening 2016 Hepatitis C Screening 2018 Pneumococcal Vaccine: At-Risk and Pediatric Patients (0 to 49 Years) (1 of 2 - PCV) 2019 03/22/2003, 04/07/2001 DTaP,Tdap,and Td Vaccines (7 - Td or Tdap) 05/14/2022 05/14/2012, 11/10/2004, 03/22/2003, Additional history exists COVID-19 Vaccine (3 - season) 2025 06/03/2021, 05/07/2021 Influenza Vaccine (#1) 2025 Zoster Vaccines (1 of 2) 2050 Hepatitis B Vaccines Completed 11/10/2004, 03/25/2002, 04/07/2001 MMR Vaccines Completed 11/10/2004, 03/22/2003 HPV Vaccines Completed 04/05/2015, 07/14, 05/14/2012 Meningococcal Vaccine Completed 06/18/2017, 012 Hepatitis A Vaccines Aged Out No long er eligible based on patient's age to complete this topic Insurance MEDICAID AM[place] Care Teams Consumer Insights Intern Relationship Specialty Start Date End Date Jenni Lacey [address] [id number] PCP - Insurance Payer PCP 08/17/23
--- OUTSIDE RECORDS SUMMARY | 2025-10-06 08:16 | XMS_ITS | Clinical Summary ---
Author Organization [facility] Prior to 03/13/25 Address [address] [place] [address] Care Team Providers Care Slip Sheeter Name Role Phone Aguilar Nguyen NP Primary Care Provider [phone] Allergies No known active allergies Medications Medication Sig Dispensed Refills Start Date End Date Status busPIRone HCl (BUSPAR PO) Take 5 mg by mouth 2 (two) times a day. 0 Active Acetaminophen (TYLENOL PO) Take by mouth. 0 Active atomoxetine (STRATTERA) 18 MG capsule Take 1 capsule (18 mg total) by mouth daily. 0 11/08/2023 Active cyclobenzaprine (FLEXERIL) 5 MG tablet Take 2 tablets (10 mg total) by mouth every night at bedtime. 0 11/21/2023 Active pantoprazole (PROTONIX) 40 MG tablet TAKE 1 TABLET BY MOUTH EVERY MORNING ON AN EMPTY STOMACH. 90 tablet 1 02/24/2024 Active Additional Information Patient taking differently:40 mg OralAs needed, on an empty stomach, Reason: Other, Reported on 04/13/2024 naproxen (NAPROSYN) 250 MG tablet Take 1 tablet (250 mg total) by mouth 2 (two) times a day as needed. 0 Active ALBUTEROL IN Inhale into the lungs. 0 Active Active Problems Problem Noted Date Diagnosed Date Macromastia 02/14/2024 Benign joint hypermobility 12/20/202306/03 Overview: 12/20/2023 - Chronic condition, stable, initial assessment. Patient agrees to referral to genetics for testing for hypermobile Jesse-Danlos syndrome - order placed. 02/17/2024 - Genetics requests patient complete Echocardiogram prior to scheduling. Echo complete, results benign. Referral to genetics re-sent, will include Echo results with referral paperwork. Bilateral hand swelling 12/20/2023 06/03/20 Chronic fatigue 12/20/2023 06/03/2024 Claudication 12/20/2023 06/03/2024 Overview: 12/20/2023 - Chronic condition, initial evaluation. Patient agrees to complete ankle-brachial index to assess for peripheral artery disease. 01/20/2024 - Stable, not at goal. Reviewed BUSTER results with patient - results negative for PAD. Patient awaiting scheduling with Cardiology for further evaluation. Palpitations 12/20/2023 06/03/2024 Overview: 12/20/2023 - Chronic condition for years , [...] patient advised to keep earliest appointment available. Raynaud's disease without gangrene 12/20/2023 06/03/2024 Abdominal bloating 12/05/2023 Overview: 12/20/2023 - Patient agrees to complete Celiac panel lab work - orders placed. 01/20/2024 - Reviewed Celiac panel results with patient; results negative. Patient agrees to Gastroenterology referral - order placed. Encouraged patient to call Gastroenterology office if not contacted to schedule appointment within 2 weeks. Irregular bowel habits 12/05/2023 Epigastric pain 12/05/2023 Change in bowel habits 12/05/2023 Epigastric abdominal pain 12/05/2023 Gastroesophageal reflux disease 11/21/2023 Overview: 11/21/2023 Chronic condition, stable, well controlled. Continue on pantoprazole 20 mg once daily. Refill order placed. 02/17/2024 - Encouraged patient to start taking Pantoprazole 40 mg once daily on first thing before any food intake. Patient to follow up with office if painful hiccups are unrelieved with daily Pantoprazole use. Bright red blood per rectum 05/20/202305/15 Overview: 11/21/2023 Patient last seen by GI in June, - was advised that blood was related to constipation (hemorrhoid vs anal fissure?). Advised patient follow up with GI, request a scope exam given family history of colon cancer. Encouraged patient to request cancer specific labs through GI. Frequent loose stools 05/20/2023 06/03/2024 Acquired absence of both cervix and uterus 02/0506/03/2024 Overview: Last Assessment & Plan: Meeting postoperative goals No vaginal bleeding Return for 6 week postop visit Abnormal uterine bleeding (AUB) 01/04/2023 06/03/2024 Overview: Added automatically from request for surgery [id number] Cervical dysplasia 11/17/2022 06/03/2024 Overview: LSIL pap 10/2022: needs pap 1 year S/p hysterectomy SASCHA 1, no need for anymore pap smears. Last Assessment & Plan: S/p hysterectomy, CIN1 on final pathology, no need for further paps. Intertrigo 10/16/2022 06/03/2024 Thrombocytosis 02/22/2022 06/03/2024 Vitamin D deficiency 02/22/2022 06/03/2024 Discharge from left nipple 02/21/202206/03 Painful lumpy left breast 02/21/20222023 Bilateral lumbar radiculopathy 11/15/2021 0 06/03/2024 Vertebrogenic low back pain 10/16/2021 Overview: Impression - [id number]: Dx:2020 11/21/2023 Patient has completed several months of physical therapy, and has tried acupuncture and chiropractor, with no relief of chronic back pain. Office to provide letter of medical necessity for patient's breast reduction surgery. Impression - [id number]: Dx: 2020 11/21/2023 Start Cyclobenzaprine 5 mg before bed [...] than 2 weeks. Continue exercise as tolerated. 02/17/2024 - In-office urinalysis significant for trace blood in urine, otherwise unremarkable. Sample sent for culture. Patient agrees to complete low-dose CT of abdomen and pelvis without contrast to evaluate for potential kidney stone. Will monitor results. Encouraged patient to continue with increased hydration. Anxiety 10/16/2021 06/03/2024 Overview: Impression - [id number]: Patient requesting a therapist. Manages with relaxation techniques. Asthma 10/16/2021 06/03/2024 Overview: Impression - [id number]: Stable and no recent exacerbations. Use inhalers PRN. Impression - [id number]: Stable and no recent exacerbations. Depression 10/16/2021 06/03/2024 H/O self mutilation 10/16/2021 06/03/2024 Overview: Impression - [id number]: Right lower arm scarring History of tonsillectomy 10/16/2021 024 Overview: Impression - [id number]: 2019 Attention deficit hyperactivity disorder (ADHD) 12/19/2019 06/03/2024 Eating disorder, unspecified 12/19/2019 Pleuritic chest pain 08/20/2017 06/03/2024 Overview: 07/2017 negative pfts, however suboptimal, per report Consider re-testing if symptoms persist Eczema 06/18/2017 06/03/2024 Recurrent severe major depressive disorder with anxiety 11/15/2016 06/03/2024 Major depressive disorder, recurrent episode 06/03/2024 Fracture of phalanx of finger 07/28/2012 Tendinitis 10/02/2011 06/03/2024 Overview: Impression - [id number]: Patient will take Claritin 10 milligram daily as needed for allergy/postnasal drip. Ordered a chest x-ray because patient is concerned about history of pneumonia. Clinically patient is stable. No sign or symptoms of pneumonia. No fever, no productive cough. Family History Medical History Relation Name Comments Heart attack Maternal Grandfather Gilberto CHAMPION Possibl e fatal [place] Breast cancer Paternal Grandmother Paulo HDZ Colon cancer Paternal Grandmother Paulo HDZ Skin cancer Paternal Grandmother Paulo HDZ Relation Name Status Comments Maternal Grandfather Gilberto CHAMPION Paternal Grandmother Paulo HDZ Social History Tobacco Use Types Packs/Day Years Used Date Smoking Tobacco: Former Cigarettes 0.3 4 2 018 - 04/13/2022 Comments:Quit 03/14/22 Alcohol Use Standard Drinks/Week Comments Yes 0 (1 standard drink = 0.6 oz pur e alcohol) rare Sex and Gender Information Value Date Recorded Sex Assigned at Female 09/07/2022 8:00 PM EST Gender Identity Not on file Sexual Orientation Not on file Job Start Date Occupation Industry Not on file Not on file Not on file Last Filed Vital Signs Vital Sign Reading Time Taken Comments Blood Pressure 147/104 08/05/2024 10:50 AM EDT Pulse 93 08/05/2024 10:50 AM EDT Temperature 36.6 C (97.8 F) 04/06/2024 9:42 AM EDT Respiratory Rate 16 08/05/2024 10:50 AM EDT Oxygen Saturation 98% 04/13/2024 9:22 AM EDT Inhaled Oxygen Concentration - - Weight 95.3 kg (210 lb) 04/13/2024 2:59 PM EDT Height 160 cm (5' 3 ) 04/13/2024 2:59 PM EDT Body Mass Index 37.2 04/13/2024 2:59 PM EDT Plan of Treatment Health Maintenance Due Date Last Done Comments Hepatitis C Screening 2000 Depression Screening 2012 Gonorrhea and Chlamydia Screening 2013 Preventative Health Evaluation 2018 Cervical Cancer Screening (Pap Smear) 2021 DTap / Tdap / Td (3 - Td or Tdap) 05/14/2022 05/14/2012, 11/10/2004 BMI Counseling 01/06/2025 01/07/2024, 10/10/2022 COVID-19 Vaccine (3 - 2024-2 6 season) 2025 06/03/2021, 05/07/2021 Influenza Vaccine (#1) 2025 Pneumococcal Vaccine Completed 03/22/2003, 04/07/2001 Hepatitis B Vaccines Completed 11/10/2004, 03/25/2002, 04/07/2001 RSV Ped < 20 months Aged Out No longe r eligible based on patient's age to complete this topic Advance Directives For more information, please contact: [phone] Latest Code Status on File Code Status Date Activated Date Inactivated Comments Full Code 04/06/2024 11:10 AM 04/06/2024 6:03 PM This code status was ascertained in the following way: chart . Care Teams Slip Sheeter Relationship Specialty Start Date End Date Aguilar Nguyen NP [address] [place] [address] PCP - General Nurse Practitioner 02/18/24
[2025-10-06 08:41] LABS: MANUAL DIFF FLAG NO
--- NOTE | 2025-10-06 08:49 | ECG_ITS ---
Test Reason : qtc check Blood Pressure : */* mmHG Vent. Rate : 64 BPM Atrial Rate : 64 BPM P-R Int : 122 ms QRS Dur : 78 ms QT Int : 402 ms P-R-T Axes : 21 41 29 degrees QTcB Int : 414 ms Sinus rhythm with marked sinus arrhythmia Low voltage QRS Borderline ECG No previous ECGs available Referred By: Antoinette Sinha Electronically Signed By: SHANTELL RIVAS MD
[2025-10-06 09:01] LABS: Hematocrit 39.9 % (37.0-47.0); Hemoglobin 13.4 g/dl (12.0-16.0); Imm Gran Abs Auto 0.02 X10*3/uL (0.00-0.03); Imm Gran Pct Auto 0.2 % (0.0-0.4); Lymphocytes Absolute Auto 3.5 X10*3/uL (1.2-4.9); Mean Corpuscular HGB Conc 33.6 g/dl (31.0-35.0); Mean Corpuscular Hemoglobin 31.5 pg (27.0-33.0); Mean Corpuscular Volume 93.7 fL (80.0-98.0); NRBC Abs Auto 0.000 X10*3/uL (0.0-0.012); NRBC Pct Auto 0.0 /100WBC (0.0-0.2); Platelet Count 424 X10*3/uL (160-400); Red Blood Count 4.26 X10*6/uL (4.20-5.50); White Blood Count 9.3 X10*3/uL (4.8-10.8)
[2025-10-06 09:06] LABS: Appearance Urine Clear; Glucose Urine UA Negative (Negative); PH 5.0 (5.0-9.0); Specific Gravity - Urine 1.020 (1.005-1.025); UMIC TRIGGER UA YES
[2025-10-06 09:39] LABS: Alanine Aminotransferase 15 U/L (0-31); Albumin Level 4.5 g/dL (3.5-5.0); Alkaline Phosphatase 72 U/L (39-117); Anion Gap 11 (12-20); Aspartate Amino Transferase 18 U/L (5-31); Blood Urea Nitrogen 14 mg/dL (9-16); Calcium 9.3 mg/dL (8.4-10.2); Carbon Dioxide 23 mmol/L (22-29); Chloride 110 mmol/L (96-108); Cholesterol 172 mg/dL (<200); Estimated Glomerular Filt Rate > 60; HDL Cholesterol 41 mg/dL (>40); Iron 64 mcg/dL (30-160); Magnesium 2.0 mg/dL (1.6-2.6); Percent Iron Saturation 22 % (15-50); Potassium 4.5 mmol/L (3.3-5.1); Sodium 139 mmol/L (135-145); Total Iron Binding Capacity 285 mcg/dL (228-428); Total Protein 7.4 g/dL (6.5-8.0); Triglycerides 92 mg/dL (<150); Unsaturated Iron Binding 221 ug/dL
[2025-10-06 09:47] LABS: Syphilis Screen Nonreactive (Nonreactive)
[2025-10-06 09:48] LABS: HBS Num1 0.18 mIU/mL (0-7.99); HBc Num1 0.06 S/CO (0.00-0.79); HBsAGNum1 0.26 S/CO (0.00-0.99); HIV Num 1 0.07 S/CO (0.00-0.99); Hepatitis B Surface Antigen Negative (Negative); ~HepC Num1 0.08 S/CO (0.00-0.79); ~Hepatitis B Surface Antibody NONREACTIVE (Nonreactive); ~Hepatitis C Antibody Nonreactive (Nonreactive)
[2025-10-06 09:55] LABS: Free T4 (Free Thyroxine) 1.07 ng/dL (0.71-1.85); Thyroid Stimulating Hormone 2.72 uIU/mL (0.32-4.0)
[2025-10-06 10:02] LABS: Folate 5.3 ng/mL (> or = 4.0); Vitamin B12 400 pg/mL (200-900)
[2025-10-06 10:57] LABS: CT PCR Urine NOT DETECTED (Not Detect.); NG PCR Urine NOT DETECTED (Not Detect.)
[2025-10-12 12:04] LABS: Anti Nuclear Antibody Pattern Nuclear, Speckled; Anti Nuclear Antibody Screen POSITIVE (NEGATIVE); Anti Nuclear Antibody Titer 1:40 titer
== END ==
LOC: HO.CARD 08:12
PROVIDERS: Visit Provider Psychiatry & Neurology Psychiatry
DX: Z01.84 Encounter for antibody response examination (principal); F39 Unspecified mood [affective] disorder; B99.9 Unspecified infectious disease; G89.29 Other chronic pain; Z20.2 Contact with and (suspected) exposure to infections with a predominantly sexual mode of transmission; Z11.4 Encounter for screening for human immunodeficiency virus [HIV]; Z11.59 Encounter for screening for other viral diseases
CPT/HCPCS: 80053; 80061; 81001; 81003; 82306; 82607; 82746; 82784; 83036; 83090; 83540; 83735; 84425; 84439; 84443; 85025; 85652; 86038; 86140; 86160; 86162; 86431; 86704; 86706; 86780; 86803; 87340; 87389; 87491; 87591; 93005

== ENCOUNTER → 2025-10-06 08:49 | Outpatient (BNV) | payer OTHER, SELFPAY | PROVIDERS: Visit Provider Internal Medicine Cardiovascular Disease | DX: Z13.6 Encounter for screening for cardiovascular disorders (principal) | CPT/HCPCS: 93010 ==